=== PATIENT | male | born 1930 | race Caucasian/White ===

== ENCOUNTER 2017-04-10 11:02 | Emergency (ER) | payer MEDICARE ==
[~2017-04-10] VITALS: Ht 175.3 cm; Wt 86.2 kg
[~2017-04-10 11:02] MED LIST: ACYC800T PO; ASPI325T8 PO; ATOR20TA58 PO; CETI10TA22 PO; CIPR250T30 PO; CLIN150C14 PO; HYDR-2758 PO; LEVO50TA5 PO; MULT1TAB52 PO; PRED50TA PO; TAMS0.4C2 PO; TRAM-48 PO
--- NOTE | 2017-04-10 11:33 | PHYS DOC ---
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 He states he's had severe pain since then which happened 2 nights ago. He is taking Tylenol without any relief. He denies any hematuria, denies any abdominal pain. He states only hurts on the aspect of his left flank. Review of Systems Review of Systems Constitutional: Denies fever or chills [] Eyes: Denies change in visual acuity, redness, or eye pain [] HENT: Denies nasal congestion or sore throat [] Respiratory: Denies cough or shortness of breath [] Cardiovascular: No additional information not addressed in HPI [] GI: Denies abdominal pain, nausea, vomiting, bloody stools or diarrhea [] : Denies dysuria or hematuria [] Musculoskeletal: Positive for left-sided flank pain Integument: Denies rash or skin lesions [] Neurologic: Denies headache, focal weakness or sensory changes [] Endocrine: Denies polyuria or polydipsia [] All other systems were reviewed and found to be within normal limits, except as documented in this note. Current Medications Current Medications Current Medications Medications (Trade) Dose Ordered Sig/Berto Start Time Stop Time Status Last Admin Dose Admin Acetaminophen/ Hydrocodone Bitart (Lortab 7.5/325) 1 tab 1X ONCE 04/10/17 12:00 04/10/17 12:01 DC 04/10/17 12:00 1 TAB Allergies Allergies Allergies Coded Allergies Type Severity Reaction Last Updated Verified No Known Drug Allergies 06/18/15 No Physical Exam Physical Exam Constitutional: Well developed, well nourished, no acute distress, non-toxic appearance. [] HENT: Normocephalic, atraumatic, bilateral external ears normal, oropharynx moist, no oral exudates, nose normal. [] Eyes: PERRLA, EOMI, conjunctiva normal, no discharge. [] Neck: Normal range of motion, no tenderness, supple, no stridor. [] Cardiovascular:Heart rate regular rhythm, no murmur [] Lungs & Thorax: Bilateral breath sounds clear to auscultation [] Abdomen: Bowel sounds normal, soft, no tenderness, no masses, no pulsatile masses. [] Skin: Warm, dry, no erythema, no rash. [] Back: No midline tenderness, tender palpation of the left ribs and flank area, no ecchymosis appreciated or crepitus Extremities: No tenderness, no cyanosis, no clubbing, ROM intact, no edema. [] Neurologic: Alert and oriented X 3, normal motor function, normal sensory function, no focal deficits noted. [] Psychologic: Affect normal, judgement normal, mood normal. [] Current Patient Data Vital Signs Vital Signs Date Time Temp Pulse Resp B/P (MAP) Pulse Ox O2 Delivery O2 Flow Rate FiO2 04/10/17 12:24 72 166/77 (106) 93 Room Air 04/10/17 11:20 97.7 18 97.7 Lab Values Laboratory Tests Test 04/10/17 12:00 Urine Collection Type Unknown Urine Color Yellow Urine Clarity Cloudy Urine pH 6.0 Urine Specific [place] 1.020 Urine Protein Negative mg/dL (NEG-TRACE) Urine Glucose (UA) Negative mg/dL (NEG) Urine Ketones (Stick) Negative mg/dL (NEG) Urine Blood Negative (NEG) Urine Nitrite Negative (NEG) Urine Bilirubin Negative (NEG) Urine Urobilinogen Dipstick 0.2 mg/dL (0.2 mg/dL) Urine Leukocyte Esterase Negative (NEG) Urine RBC 0 /HPF (0-2) Urine WBC 0 /HPF (0-4) Urine Squamous Epithelial Cells Occ /LPF Urine Bacteria 0 /HPF (0-FEW) Urine Mucus Mod /LPF EKG EKG [] Radiology/Procedures Radiology/Procedures [facility] [address] [place], [place] [id number] IMAGING REPORT Signed PATIENT: JENNIFER LOREDO ACCOUNT: [id number] : 1930 LOCATION: ER AGE: 86 SEX: M EXAM STATUS: REG ER ORD. PHYSICIAN: DOLLY MAURER MD REASON: flank pain PROCEDURE: KUB Single view of the abdomen 04/10/2017 Indication: Left-sided flank pain since recent fall Comparison study: None available Discussion: The bowel gas pattern is nonobstructive. No gross pneumoperitoneum is identified. Rounded calcifications projecting over the expected region of the right kidney. Punctate calcification projecting over the left renal hilum is also seen. Nephrolithiasis not excluded. Degenerative changes of the lumbar spine are noted. Diffuse atherosclerotic vascular disease is seen. An acute osseous abnormality is not identified. Impression: 1. Nonobstructive bowel gas pattern. 2. Nonspecific calcifications projecting over the renal shadows could be the sequela of atherosclerotic vascular disease or represent nephrolithiasis. DICTATED and SIGNED BY: ZULLY ARAUJO MD DATE: 04/10/17 1239 CC: DOLLY MAURER MD; VERO GONZALEZ MD ~ [facility] [address] [place] [address] IMAGING REPORT Signed PATIENT: JENNIFER LOREDO ACCOUNT: [id number] : 1930 LOCATION: ER AGE: 86 SEX: M EXAM STATUS: REG ER ORD. PHYSICIAN: DOLLY MAURER MD REASON: flank pain PROCEDURE: RIBS LEFT AND PA CHEST Left rib series to include a PA chest radiograph 04/10/2017 Clinical history: Left-sided chest pain post fall 2 days ago. A PA digital radiograph of the chest was obtained. 2 AP and 2 oblique digital radiographs of the left ribs were obtained. The cardiac silhouette is normal in size. Atherosclerotic calcification of the thoracic aorta is seen. The thoracic aorta is mildly tortuous. Left basilar subsegmental atelectasis and/or scarring is noted. No area of consolidation is seen. No pleural effusion or pneumothorax is noted. There is diffuse osteopenia the visualized bony structures. Degenerative changes are seen involving the thoracic spine. The osseous structures are grossly intact. Specifically no left-sided rib fracture is seen. A 5 mm calcification is seen within the left upper quadrant abdomen which may represent a renal calculus. Impression: No left-sided rib fracture is seen. DICTATED and SIGNED BY: CANDIE TORRES MD DATE: 04/10/17 1258 CC: DOLLY MAURER MD; VERO GONZALEZ MD ~ Impressions: Left-sided back pain Course & Med Decision Making Course & Med Decision Making Pertinent Labs and Imaging studies reviewed. (See chart for details) X-rays of the abdomen and rib series did not show any acute abnormality's. Patient likely has a contusion and is being discharged with [place]. He is instructed not to drive or drink alcohol while taking this medicine. Return precautions given. He is agreeable to the plan and being discharged in stable condition. Dragon Disclaimer Dragon Disclaimer This electronic medical record was generated, in whole or in part, using a voice recognition dictation system. Departure Departure Impression: Primary Impression: Back pain Disposition: HOME, SELF-CARE Condition: STABLE Referrals: VERO GONZALEZ MD (PCP) Patient Instructions: Back Pain, Adult Additional Instructions: Your x-rays do not show anything broken. Your being discharged home with narcotic pain medicine. Please don't drive or drink alcohol while taking this medicine. It can impair your judgment and make you confused. If your pain gets worse, please follow-up with your primary care physician or return back to ER. Scripts Hydrocodone/Apap 5-325 (NORCO 5-325 TABLET) 1 Each Tablet 1 TAB PO PRN Q6HRS Y for PAIN, #20 TAB 0 Refills Prov: DOLLY MAURER MD 04/10/17 DOLLY MAURER MD Apr 10, 2017 11:33
[2017-04-10] MEDS ORDERED: HYDROcodone/APAP 7.5/325MG 1 TAB TABLET PO ONE (12:00)
[2017-04-10 12:14] LABS: BILIRUBIN,URINE NEGATIVE (NEG); GLUCOSE,URINE NEGATIVE (NEG); NITRITE,URINE NEGATIVE (NEG); PROTEIN,URINE NEGATIVE (NEG-TRACE); UROBILINOGEN,URINE 0.2 mg/dL (0.2 mg/dL)
[2017-04-10 12:24] VITALS: BP 166/77
[2017-04-10 12:39] LABS: BACTERIA,URINE 0 /HPF (0-FEW); RBC,URINE 0 /HPF (0-2); SQUAMOUS EPITHELIAL CELL,UR OCC /LPF; WBC,URINE 0 /HPF (0-4)
--- NOTE | 2017-04-10 12:45 | RAD ---
Single view of the abdomen 04/10/2017 Indication: Left-sided flank pain since recent fall Comparison study: None available Discussion: The bowel gas pattern is nonobstructive. No gross pneumoperitoneum is identified. Rounded calcifications projecting over the expected region of the right kidney. Punctate calcification projecting over the left renal hilum is also seen. Nephrolithiasis not excluded. Degenerative changes of the lumbar spine are noted. Diffuse atherosclerotic vascular disease is seen. An acute osseous abnormality is not identified. Impression: 1. Nonobstructive bowel gas pattern. 2. Nonspecific calcifications projecting over the renal shadows could be the sequela of atherosclerotic vascular disease or represent nephrolithiasis.
--- NOTE | 2017-04-10 13:05 | RAD ---
Left rib series to include a PA chest radiograph 04/10/2017 Clinical history: Left-sided chest pain post fall 2 days ago. A PA digital radiograph of the chest was obtained. 2 AP and 2 oblique digital radiographs of the left ribs were obtained. The cardiac silhouette is normal in size. Atherosclerotic calcification of the thoracic aorta is seen. The thoracic aorta is mildly tortuous. Left basilar subsegmental atelectasis and/or scarring is noted. No area of consolidation is seen. No pleural effusion or pneumothorax is noted. There is diffuse osteopenia the visualized bony structures. Degenerative changes are seen involving the thoracic spine. The osseous structures are grossly intact. Specifically no left-sided rib fracture is seen. A 5 mm calcification is seen within the left upper quadrant abdomen which may represent a renal calculus. Impression: No left-sided rib fracture is seen.
[2017-04-10] MEDS ORDERED: HYDR-971 PO (13:33)
== END 2017-04-10 13:41 | disposition home or self-care (01) ==
LOC: ER 11:02
DX: M54.5 Low back pain (principal); R10.9 Unspecified abdominal pain; E78.00 Pure hypercholesterolemia, unspecified; E03.9 Hypothyroidism, unspecified; W01.198A Fall on same level from slipping, tripping and stumbling with subsequent striking against other object, initial encounter; Y93.89 Activity, other specified; Y99.8 Other external cause status; Y92.090 Kitchen in other non-institutional residence as the place of occurrence of the external cause
CPT/HCPCS: 71101; 74000; 81001; 99285-25